=== PATIENT | female | born 1945 | race Caucasian/White ===

== ENCOUNTER 2017-06-08 14:51 | Outpatient (CLI) | payer MEDICARE, OTHER ==
--- NOTE | 2017-06-09 17:36 | Mammography Report ---
DIGITAL SCREENING MAMMOGRAM: 06/08/2017 CLINICAL INDICATION: A 71-year-old for screening. COMPARISON: 05/2015, 09/2012. TECHNIQUE: Routine CC and MLO projections were obtained of the breasts. FINDINGS: The breasts demonstrate scattered fibroglandular densities bilaterally. Coarse, typically benign calcifications are present. No suspicious masses, clustered microcalcifications, or regions of architectural distortion are identified. IMPRESSION: BENIGN FINDINGS. RECOMMENDATION: Routine annual screening unless otherwise clinically indicated. BI-RADS category 2, benign findings. STANDARD QUALIFYING STATEMENTS 1. This examination was reviewed with the aid of Computer-Aided Detection (CAD). 2. A negative or benign imaging report should not delay biopsy if clinically suspicious findings are present. Consider surgical consultation if warranted. More than 5% of cancers are not identified by i maging. 3. Dense breasts may obscure an underlying neoplasm. JOB #: [id number] EXT JOB #:[id number]
== END 2017-06-08 14:52 | disposition home or self-care (01) ==
LOC: DI 14:51
PROVIDERS: ATTEND Physician Assistant
DX: Z12.31 Encounter for screening mammogram for malignant neoplasm of breast (principal)
CPT/HCPCS: 77067

== ENCOUNTER 2017-06-08 14:53 | Outpatient (CLI) | payer MEDICARE, OTHER ==
--- NOTE | 2017-06-13 08:36 | CT Report ---
CT CHEST WITHOUT CONTRAST: 06/08/2017 CLINICAL INDICATION: A 71-year-old with 35-pack year history of smoking, quit within the last 15 yea rs for lung cancer screening. TECHNIQUE: Axial CT images of the chest were obtained without intravenous contrast. No previous CT is available for comparison. FINDINGS: The heart and great vessels demonstrate mild atherosclerotic calcification. No hilar or m ediastinal lymphadenopathy is present. The lungs demonstrate dependent atelectasis. No suspicious p ulmonary nodule or mass lesion is present. No effusion or pneumothorax is seen. Osseous structures demonstrate mild degenerative changes. Limited evaluation of upper abdominal structures demonstrates normal adrenal glands. IMPRESSION: NO SUSPICIOUS PULMONARY NODULE OR MASS LESION. RECOMMENDATION: Continue annual screening with low-dose CT in 12 months. Lung-RADS category 1, negative. In accordance with CT protocol optimization, one or more of the following dose reduction techniques w ere utilized for this exam: automated exposure control, adjustment of mA and/or KV based on patient size, or use of iterative reconstructive technique. JOB #: [id number] EXT JOB #:[id number]
== END 2017-06-08 14:54 | disposition home or self-care (01) ==
LOC: DI 14:53
PROVIDERS: ATTEND Physician Assistant
DX: Z12.2 Encounter for screening for malignant neoplasm of respiratory organs (principal); Z87.891 Personal history of nicotine dependence

== ENCOUNTER 2019-08-24 14:19 | Outpatient (CLI) | payer MEDICARE, OTHER ==
--- NOTE | 2019-08-27 12:10 | Mammography Report ---
Reason: SCREENING MAMMO Procedure Date: 08/24/2019 Accession Number: [id number] / [id number] Procedure: [facility] - Screening Mammo w/Jacob CPT Code: FULL RESULT: EXAM: Screening Mammo w/Jacob DATE: 08/24/2019 2:52 PM CLINICAL HISTORY: Screening encounter. TECHNIQUE: (B) - Bilateral CC and MLO views were obtained. COMPARISON: 06/08/2017 through 10/10/2012. PARENCHYMAL PATTERN: (A) - The breast(s) demonstrate(s) scattered fibroglandular densities. FINDINGS: There are coarse typically benign calcifications. There are no suspicious masses, calcifications, or areas of distortion. IMPRESSION: Benign findings. BI-RADS category 2. RECOMMENDATION: (ANNUAL) - Recommend routine annual screening mammography. BI-RADS CATEGORY: (2) - Benign Findings. STANDARD QUALIFYING STATEMENTS: 1. This examination was not reviewed with the aid of Computer-Aided Detection (CAD). 2. A negative or benign imaging report should not preclude biopsy if clinically suspicious findings are present. 3. Dense breasts may obscure an underlying neoplasm. 4. This examination was reviewed with the aid of 3D breast imaging (tomosynthesis).
== END 2019-08-24 14:20 | disposition home or self-care (01) ==
LOC: DI 14:19
PROVIDERS: ATTEND Internal Medicine
DX: Z12.31 Encounter for screening mammogram for malignant neoplasm of breast (principal)
CPT/HCPCS: 77063; 77067

== ENCOUNTER 2022-06-02 15:17 | Outpatient (CLI) | payer MEDICARE, OTHER ==
--- NOTE | 2022-06-02 16:28 | XRAY Report ---
PROCEDURE: Hand 3 View BILAT INDICATIONS: BILATERAL HAND PX TECHNIQUE: 3 views of each hand(s) acquired. COMPARISON: None FINDINGS: Bones: No fractures or dislocations. No suspicious bony lesions. Mild joint space during and parti cular osteophyte formation at the radiocarpal, scaphotrapezial, first metacarpal joints, as well as t he interphalangeal joints of the digits. No periarticular erosions to indicate erosive arthropathy. Soft tissues: No suspicious soft tissue calcifications. IMPRESSION: Multifocal osteoarthritis. No acute fracture. No osseous lesion. If symptoms and/or clinical suspicio n for pathology continue, further assessment with repeat plain films, or advanced imaging (e.g., CT, MRI, or bone scan) is recommended for further assessment. Reviewed by: Vanda Escobedo MD on 06/02/2022 4:27 PM PDT Approved by: Vanda Escobedo MD on 06/02/2022 4:27 PM PDT Station ID: [id number]
== END 2022-06-02 15:18 | disposition home or self-care (01) ==
LOC: DI.N 15:17
PROVIDERS: ATTEND Internal Medicine
DX: M19.042 Primary osteoarthritis, left hand (principal); M19.041 Primary osteoarthritis, right hand

== ENCOUNTER 2022-07-12 15:25 | Outpatient (CLI) | payer MEDICARE, OTHER ==
--- NOTE | 2022-07-12 17:29 | XRAY Report ---
PROCEDURE: Lumbar Spine 2 View INDICATIONS: LOW BACK PX TECHNIQUE: 3 views of the lumbar spine were acquired. COMPARISON: None. FINDINGS: Bones: 3 views of the lumbar spine demonstrate multilevel degenerative changes with small anterior os teophytes. There is facet arthrosis in the lower lumbar spine. Grade 1 anterolisthesis is noted at L4 -5. Disc space narrowing at multiple levels, worst at T11-12. Sacrum is normal. Soft tissues: Overlying bowel gas pattern is normal. No suspicious soft tissue calcifications. The aorta has atherosclerotic calcifications. The sacroiliac joints are normal. IMPRESSION: Multilevel degenerative changes and facet arthrosis with no acute abnormality. Reviewed by: Giovanni Moreau on 07/12/2022 5:27 PM PDT Approved by: Giovanni Moreau on 07/12/2022 5:27 PM PDT Station ID: [id number]
== END 2022-07-12 15:26 | disposition home or self-care (01) ==
LOC: DI.N 15:25
PROVIDERS: ATTEND Internal Medicine
DX: M47.816 Spondylosis without myelopathy or radiculopathy, lumbar region (principal); M48.061 Spinal stenosis, lumbar region without neurogenic claudication; M43.16 Spondylolisthesis, lumbar region